=== PATIENT | male | born 1980 | race Caucasian/White ===

== ENCOUNTER 2023-07-04 18:53 | Emergency (ER) | payer BC, SELFPAY ==
[2023-07-04 18:59] VITALS: BP 167/97
[2023-07-04 19:23] LABS: % Basophils 0.4 % (0-2); % Eosinophils 1.6 % (0-6); % Immature Granulocytes 0.3 % (0-0.5); % Lymphocytes 29.2 % (20.5-51.1); % Monocytes 8.8 % (1.7-9.3); % Neutrophils 59.7 % (42.2-75.2); Absolute Eosinophils 0.2 10^3/uL (0-0.7); Absolute Lymphocytes 2.7 10^3/uL (1.2-3.4); Absolute Monocytes 0.8 10^3/uL (0.1-0.6); Absolute Neutrophils 5.4 10^3/uL (1.4-6.5); Hematocrit 49.9 % (39.0-52.0); Hemoglobin 16.9 g/dL (13.0-18.0); Mean Corp Hgb Conc. 33.9 g/dL (33.0-37.0); Mean Corpuscular Hgb 30.3 pg (27.0-31.0); Mean Corpuscular Volume 89.6 fL (80.0-94.0); Mean Platelet Volume 10.2 fL (7.4-10.4); Nucleated Red Blood Cells % 0 % (-); Platelet Count 237 10^3/uL (130-400); Red Blood Cell Count 5.57 10^6/uL (4.70-6.10); Red Cell Dist. Width 12.9 % (11.5-14.5); White Blood Cell Count 9.1 10^3/uL (4.8-10.8)
[2023-07-04 19:24] LABS: Urine Albumin Negative (Neg - Trace); Urine Bilirubin Negative (Negative); Urine Character Clear (Clear); Urine Color Yellow; Urine Glucose Negative (Negative); Urine Ketone Negative (Negative); Urine Leukocyte Trace (Negative); Urine Nitrite Negative (Negative); Urine Occult Blood 3+ (Negative); Urine Urobilinogen Negative (Neg - 1+)
[2023-07-04 19:42] LABS: Urine Squamous Cell 0-2 /LPF (Few)
[2023-07-04 19:43] LABS: ALT (SGPT) 38 U/L (0-50); AST (SGOT) 29 U/L (17-59); Albumin 4.8 g/dl (3.5-5.0); Alkaline Phosphatase 58 U/L (38-126); Blood Urea Nitrogen 22 mg/dl (9-20); Calcium 9.8 mg/dl (8.4-10.2); Carbon Dioxide 35 mmol/L (22-30); Chloride 96 mmol/L (98-107); Glucose 127 mg/dl (70-99); Sodium 137 mmol/L (135-145); Total Bilirubin 0.7 mg/dl (0.2-1.3); Total Protein 7.8 g/dl (6.3-8.2); Urine White Cell 0-2 /HPF (0-5); eGFR > 60.00
--- NOTE | 2023-07-04 23:52 | ED.GENMED ---
History of Present Illness
<ALYSSA Galvin - Last Filed: 07/05/23 00:50>
General
Chief Complaint: Flank Pain
Source: patient and significant other
Exam Limitations: none
Time Seen by Provider: 07/04/23 23:39
Nursing documentation reviewed up to this point in time: agreed with
Travel History
Have you had any contact with someone who has COVID-19?: No
Do you have any symptoms of coronavirus? Fever > 100 degrees, chills, cough, shortness of breath, sore throat, loss of taste or smell, muscle aches, or headache?: No
History of Present Illness
History of Present Illness:
This is a 42 year old male, with a history of kidney stones, presenting to the ED c/o flank pain x 7 hours. Pt goes by they/them pronouns. Pt states they were having increased urinary frequency during the day. Pt states the pain started around 5 pm
on his right side. They took one percocet which did not help and then took a second one 45 min later, which also did not alleviate his pain. Pt states the pain was radiating down to their groin but they feel as though the stone has passed into the
bladder. Pt does not currently have flank pain and moreso complains of intermittent urethral spasms. Pt last saw their charge poster in January or February where they had a CAT scan and was told there were multiple stones in b/l kidneys. No tx was
necessary because none of the stones were obstructing. Pt has had multiple laser treatments and shock waves done in the past and states they have had 'over 100 kidney stones'. Pt denies and fever, chills, n/v, CP, SOB, dizziness, lightheadedness,
dysuria, or hematuria.
Pt denies any tobacco use, drinks 1-2 alcoholic drinks weekly, and uses marijuana 1-2x weekly.
Past History
<ALYSSA Galvin - Last Filed: 07/05/23 00:50>
Past History
ED Past Medical History: Other (>100 kidney stones, hair loss)
ED Past Surgical History: Urological (shock wave lithotripsy)
Patient has exhibited threatening behavior?: No
Social History
Tobacco: Non-smoker
Alcohol: Occasional
Drug: Marijuana
Family History
Family History: Diabetes, CAD and Other (kidney stones on both sides)
Review of Systems
<ALYSSA Galvin - Last Filed: 07/05/23 00:50>
Review of Systems
Allergies reviewed?: Yes
Other source history: family
Constitutional: Reports no symptoms; Denies fever or chills
Respiratory: Reports no symptoms; Denies trouble breathing
Cardiac: Reports no symptoms; Denies chest pain
ABD/GI: Reports abdominal pain (suprapubic); Denies nausea or vomiting
: Reports frequency and flank pain; Denies dysuria or bleeding
Skin: Reports no symptoms
Neurological: Reports no symptoms; Denies dizzy
Phy Exam
<ALYSSA Galvin - Last Filed: 07/05/23 00:50>
General Physical Exam
General Presentation: well appearing and no apparent distress
General age: appears stated age
General Skin: warm and dry
General Habitus: normal
General Mental: alert
General Hydration: appears well hydrated
Cardiovascular Exam
Cardiovascular Exam: regular rate/rhythm, no edema, no gallop, no murmur and normal peripheral pulses
Heart Sounds: normal
Pulmonary Exam
Pulmonary Exam: lungs clear, no respiratory distress, no rales, no crackles, no rhonchi, no wheezing and no cough
Oxygen Status: room air
Cough: no cough
Gastrointestinal Exam
Gastrointestinal Exam: normal bowel sounds, soft, no cva tenderness and tender (left suprapubic)
Auscultation of Abdomen: normal
Genitourinary Exam Male
Exam Male: no CVAT
Neurological Exam
Neurological Exam: alert and oriented x3
Musculoskeletal Exam
Musculoskeletal Exam: no edema
Skin Exam
Skin Exam: normal color and warm/dry
Psychiatric Exam
Psychiatric Exam: normal mood/affect
Course
<ALYSSA Galvin - Last Filed: 07/05/23 00:50>
Orders/Labs/Results
Orders:
Orders
07/04/23 19:06
Complete Blood Count/With Diff Urgent
Comprehensive Metabolic Panel Urgent
Urinalysis Reflex To Culture Urgent
Date Specimen was Collected: 07/04/23
Time Specimen was Collected: 19:00
Urine Microscopic Reflex Cult Urgent
07/05/23 00:06
Abdomen Xray - 1 View [CR Abdomen - 1 View] Urgent
Comment:
Reason For Exam: KUB film, R flank pain, hx kidney stones
Renal & Bladder US [US Renal With Bladder] Urgent
Comment:
Reason For Exam: R flank pain, hx kidney stones
Abnormal Lab Results
07/04/23
19:06
Absolute Monos (auto) 0.8 H 10^3/uL
(0.1-0.6)
Chloride 96 L mmol/L
(98-107)
Carbon Dioxide 35 H mmol/L
(22-30)
BUN 22 H mg/dl
(9-20)
Glucose 127 H mg/dl
(70-99)
Ur Occult Blood Reflex 3+ A
(Negative)
Leukocyte Esterase Rfl Trace A
(Negative)
Urine RBC 7-10 A /HPF
(0-2)
07/04/23 19:06
07/04/23 19:06
Vital Signs
Initial and Last Documented VS:
Initial Vital Signs
Temp Pulse Resp BP Pulse Ox
98.5 F 86 17 167/97 99
07/04/23 18:59 07/04/23 18:59 07/04/23 18:59 07/04/23 18:59 07/04/23 18:59
Last Documented Vital Signs
Temp Pulse Resp BP Pulse Ox
98.5 F 71 17 132/93 97
07/04/23 18:59 07/05/23 00:30 07/04/23 18:59 07/05/23 00:09 07/05/23 00:30
<Ana Laura Garcia, DO - Last Filed: 07/05/23 02:07>
Orders/Labs/Results
Orders:
Orders
07/04/23 19:06
Complete Blood Count/With Diff Urgent
Comprehensive Metabolic Panel Urgent
Urinalysis Reflex To Culture Urgent
Date Specimen was Collected: 07/04/23
Time Specimen was Collected: 19:00
Urine Microscopic Reflex Cult Urgent
07/05/23 00:06
Abdomen Xray - 1 View [CR Abdomen - 1 View] Urgent
Comment:
Reason For Exam: KUB film, R flank pain, hx kidney stones
Renal & Bladder US [US Renal With Bladder] Urgent
Comment:
Reason For Exam: R flank pain, hx kidney stones
Abnormal Lab Results
07/04/23
19:06
Absolute Monos (auto) 0.8 H 10^3/uL
(0.1-0.6)
Chloride 96 L mmol/L
(98-107)
Carbon Dioxide 35 H mmol/L
(22-30)
BUN 22 H mg/dl
(9-20)
Glucose 127 H mg/dl
(70-99)
Ur Occult Blood Reflex 3+ A
(Negative)
Leukocyte Esterase Rfl Trace A
(Negative)
Urine RBC 7-10 A /HPF
(0-2)
07/04/23 19:06
07/04/23 19:06
Vital Signs
Initial and Last Documented VS:
Initial Vital Signs
Temp Pulse Resp BP Pulse Ox
98.5 F 86 17 167/97 99
07/04/23 18:59 07/04/23 18:59 07/04/23 18:59 07/04/23 18:59 07/04/23 18:59
Last Documented Vital Signs
Temp Pulse Resp BP Pulse Ox
98.5 F 71 17 132/93 97
07/04/23 18:59 07/05/23 00:30 07/04/23 18:59 07/05/23 00:09 07/05/23 00:30
<Ana Laura Garcia DO - Last Filed: 07/05/23 02:07>
*Radiology
Radiology exam reviewed: radiology read reviewed (Ultrasound shows bilateral hydronephrosis right greater than left. Nonobstructing stones bilaterally. Ureteral jets are visualized bilaterally.)
*Pulse Oximetry
Patient hypoxic: no
*Critical Care Note
Total Time (30-74mins, 75-104mins- exclusive of procedures): Not Applicable
ED Attending Note
<ALYSSA Galvin - Last Filed: 07/05/23 00:50>
-
Portions of this chart may have been created with voice recognition software.� Occasional wrong word or��sound alike� substitutions may have occurred due to the inherent limitations of voice recognition software.
<Ana Laura Garcia DO - Last Filed: 07/05/23 02:07>
ED Attending Note
Patient seen and examined by attending physician: Yes
I performed the substantive portion of visit, reviewed & personally made and approve the management plan that is documented in note by myself or PONCHO.: Yes
I performed a history and physical exam of patient and discussed management with resident, I reviewed resident's note and agree with documented findings and plan of care.: Yes
ED Attending Note:
This is a 42-year-old (prefers they/them) who has longstanding history of kidney stones follows with nephrology as well as urology to [facility]. They required lithotripsy as well as ureteroscopy in the past but last surgical procedure a
couple of years ago. Their last episode of ureteric colic was a number of months ago. They complain of abrupt onset of right flank pain radiating to right lower quadrant
That began this evening around 5 PM. Pain feels similar to previous episodes of renal colic. They did take 2 Percocet this evening without relief but since arriving to the ED pain has resolved and they believe the stone has passed into the
bladder. They do note mild dysuria but no ramona hematuria, no urgency nor frequency. They have not had a fever nor chills. No nausea nor vomiting.
GENERAL: Alert , in no apparent distress
EYE: anicteric
NECK: Supple, nontender, no meningismus, no significant adenopathy.
ENT: oral mucosa is moist. No rhinorrhea.
CARDIAC: Regular rate and rhythm. no murmur.
LUNGS: Clear breath sounds bilaterally, no acute respiratory distress, no wheezes/rales/rhonchi
ABDOMEN: Soft, nondistended, without focal tenderness, no r/g, no cvat. normoactive BS.
NEUROLOGICAL: Alert and oriented x3, no focal neuro deficits. Gait is ugalde and steady.
SKIN: Warm and dry, normal color, skin intact. No rash.
MUSCULOSKELETAL: No C/C/E. peripheral pulses are full and equal b/l. No palpable tenderness.
PSYCH: Normal and appropriate interaction.
History concerning for right ureteric stone. Perhaps recently passed into bladder versus current quiescence of ureter versus residual nonobstructing ureteral stone.
Labs are reassuring.
Urinalysis is positive for small amount of microscopic blood but no evidence of infection.
Will check renal ultrasound with bladder assess for obstructive uropathy on the right and will check KUB as well.
Will observe for return of pain.
07/05/2023 0205 AM
Patient remains pain-free and comfortable and shortly after returning from ultrasound they have voided a lobulated approximately 6 mm stone.
This voided stone appears consistent with stone visualized right proximal bladder on KUB film.
Will discharge to home with recommendations they continue current medications as prescribed by charge poster including hydrochlorothiazide, potassium supplement, magnesium supplement.
Stay well-hydrated on a daily basis.
Follow-up with charge poster and urologist as needed.
Discharge Plan
Departure
Patient Disposition: Home (Routine Discharge)
Date of Disposition: 07/05/23
Time of Disposition: 02:03
Patient with high blood pressure during this ER visit?: No
Condition: Good
Discharge Problem:
acute renal colic on the right, successful passage of ureteric stone
Instructions: Kidney Stones (DC)
Referrals:
New Finn DO [Family Provider] - Call in 1-3 days for appt
Activity Restrictions/Additional Instructions:
Continue to stay well-hydrated on a daily basis.
Continue current medications as prescribed by your charge poster.
Follow-up with your charge poster as well as urologist as needed.
Interventions
Interventions:
*Risk Screen - Suicide Last Done: 07/04/23 18:59
*General Assessment Last Done: 07/04/23 18:59
*Neglect/Abuse Screening Last Done: 07/04/23 18:59
*ED COVID-19 Vaccine History Last Done: 07/04/23 18:59
ED-Male Genitourinary Assessment Last Done: 07/04/23 23:56
[2023-07-05 00:09] VITALS: BP 132/93
[2023-07-05 02:06] VITALS: BP 125/86
== END 2023-07-05 02:10 | disposition home or self-care (01) ==
LOC: EMR 18:53
PROVIDERS: Emergency Medicine; EMERGENCY PHYSICIAN Emergency Medicine; FAMILY PHYSICIAN Family Medicine
DX: N20.2 Calculus of kidney with calculus of ureter (principal); Z87.442 Personal history of urinary calculi
CPT/HCPCS: 99285; 74018; 76770; 80053; 81003; 81015; 85025

== ENCOUNTER → 2024-07-31 13:04 | Outpatient (REF) | payer BC, SELFPAY | LOC: HWRAD 13:04 | PROVIDERS: ATTENDING PHYSICIAN Surgery; FAMILY PHYSICIAN Family Medicine | DX: N20.0 Calculus of kidney (principal) | CPT/HCPCS: 74176 ==

== ENCOUNTER 2024-09-30 06:12 | Day surgery (SDC) | payer BC, SELFPAY ==
[2024-09-30] VITALS (11 sets, daily range): BP systolic 111–130; BP diastolic 74–88; BMI 28.4
[2024-09-30] MEDS: TYLENOL 1000 MG PO (09:43)
[2024-09-30] MEDS: NORMOSOL-R/PLASMALYTE-A 1000 IV ×2 (09:44→11:54)
--- NOTE | 2024-09-30 09:56 | W.SUR.PREOP ---
Pre-Operative Surgical Note
-
I have examined this patient prior to the performance of the scheduled procedure.
The patient's condition is unchanged from the time of the current History and
Physical and the patient is able to undergo the scheduled procedure.
--- NOTE | 2024-09-30 09:56 | HP.FOC2 ---
Focused History & Physical
Chief Complaint
HPI:
Chief Complaint: Epigastric hernia
HPI / Indication for Planned Procedure: This is a 43-year-old male with a symptomatic epigastric hernia. Will plan for robotic epigastric hernia repair with mesh.
Relevant Past Medical History: Negative
Relevant Social History: Negative
Relevant Family History: Negative
Relevant Past Surgical History: Negative
Review of Systems
Review of Pertinent Systems: All Systems Negative
Medication
See Medication form for detailed medications: Yes
Medication List (including Herbals & OTC):
albuterol sulfate 90 mcg/actuation aerosol inhaler 1 inh inhalation ONCE PRN wheeze 09/25/24
allopurinol 100 mg tablet 100 mg PO DAILY 09/25/24
desvenlafaxine succinate 25 mg tablet,extended release 24 hr (Pristiq) 25 mg PO DAILY 09/25/24
finasteride 1 mg tablet 1 mg PO DAILY 09/25/24
hydrochlorothiazide 25 mg tablet 25 mg PO BID 09/25/24
magnesium glycinate 400 mg PO DAILY 09/25/24
potassium chloride 20 mEq tablet,extended release(part/cryst) 40 meq PO BID 09/25/24
spironolactone 25 mg tablet 25 mg PO DAILY 09/25/24
Medications Reviewed: Yes
Allergies and Reactions
Patient has Allergies: No
Noted Allergies and Reactions:
Allergy/AdvReac Type Severity Reaction Status Date / Time
No Known Allergies Allergy Unverified 09/30/24 09:31
Pertinent Physical Exam
All Other Systems: Negative
Head/Neck: Normal
Diagnosis / Assessment
This is a 43-year-old male with a symptomatic epigastric hernia.
Plan / Procedure
Will plan for robotic epigastric hernia repair with mesh.
Anesthesia/Sedation to be done by Anesthesia Provider: Yes
--- NOTE | 2024-09-30 11:17 | W.IMMPOSTOP ---
Surgical Immed Post Op Note
-
Primary Surgeon: Rojas Peng MD
Assisting Surgeon: None
Pre-op Diagnosis: Epigastric
Post-op Diagnosis: Same
Procedure Performed: Robotic ventral (epigastric) hernia repair with mesh (MICHAEL approach)
Anesthesia Type: General
Specimen / Cultures: None
Estimated Blood Loss: 3 cc
Complications: None
Operative Findings: 1.5 cm defect containing preperitoneal/falciform fat. Closed transversely with a 0 V-Loc 180 suture and then reinforced in the preperitoneal space with a 10 cm round Bard soft uncoated polypropylene mesh. Mesh completely
excluded from the abdominal viscera.
--- NOTE | 2024-09-30 11:19 | OR.RPT ---
Operative Report
Operative Report
Patient Name: Brody Niño
: 1980
Date of Operation: 09/30/2024
Preoperative Diagnosis: Ventral (epigastric) hernia
Postoperative Diagnosis: Same
Procedure(s):
Robotic ventral (epigastric) hernia repair with mesh (MICHAEL approach)
Surgeon(s):
Dr. Peng
Pie Crimping Machine Operator(s):
CHELSEY Torres
Anesthesia: General
Estimated Blood Loss: 3 cc
Urine Output: None
Drains/Lines/Implants:
10 cm round Bard soft mesh
Specimens:
None
HPI/Surgical Indications:
This is a 43-year-old male who was seen in my office for a symptomatic umbilical bulge and diagnosed with a reducible epigastric hernia. Risks/Benefits/Alternatives were discussed at length, and the patient agreed to proceed with surgery.
Operative Findings: 1.5 cm defect containing preperitoneal/falciform fat. Closed transversely with a 0 V-Loc 180 suture and then reinforced in the preperitoneal space with a 10 cm round Bard soft uncoated polypropylene mesh. Mesh completely
excluded from the abdominal viscera.
Procedure Description:
The patient was brought to the Operating Room and placed in the supine position with the arms tucked. IV antibiotics were infused and Venodyne stockings placed. Following uneventful induction of general endotracheal anesthesia, an orogastric tube
was placed. The abdomen was prepped and draped in the usual sterile fashion. The abdomen was entered using a Veress technique which required 1 pass, pneumoperitoneum to 15 mmHg was obtained without difficulty. An 8mm trochar was passed through the
abdominal wall roughly 20 cm inferiorly from the defect in the left lower quadrant, just off the midline. We then confirmed that no inadvertent injury was made while passing the trocar or Veress needle. We then placed two additional 8 mm ports in
the left and right lower quadrants. Bilateral tap blocks were performed. The robot was docked. We then introduced our prograsper through the inferior/left hand port and a monopolar scissors through the superior port. We then turned our attention
to the hernia which had no intra-abdominal contents. We then began taking a flap down roughly 6 cm away from the defect and roughly 12 cm in length taking care to stay in the pretransversalis plane. The preperitoneal/falciform fat was taken down
off of the posterior rectus sheath both superior and inferior to the hernia defect such that we were able to get our 'volcano sign'. We then worked on reducing the defect which contained preperitoneal fat and continued our dissection out laterally
for an additional 6 cm. Once our flap was created we introduced a ruler and a 0 V-Loc 180. The main hernia defect measured 1.5 cm. The pocket measured 12 x 12 cm. I had my fish hatchery assistant cut a 10 cm round piece of Bard soft mesh marked with 0 Vicryl
suture at the center, as I closed the hernia defect. The mesh was then sutured to the posterior rectus sheath in 4 quadrants with 2-0 vircyls to ensure good apposition. A 2-0 Monocryl was introduced which was used to close our flap. All sutures
were removed. The robot was undocked. The ports were removed under direct visualization and pneumoperitoneum was evacuated. The port sites were closed with 4-0 Monocryl followed by Dermabond. Counts were correct and overall, the patient tolerated
the procedure well and was taken to the Recovery Room postoperatively in stable condition.
I was the attending physician and performed the procedure with assistance from the TRACK LABORER above. I was present for all portions of the case except for skin closure.
Rojas Peng MD
[2024-09-30] MEDS: DILAUDID 0.5 MG IV ×2 (11:37→11:51)
[2024-09-30] MEDS: MORPHINE SULFATE 4 MG IV (12:30)
[2024-09-30] MEDS: ROXICODONE 5 MG PO (13:21)
== END 2024-09-30 13:40 | disposition home or self-care (01) ==
LOC: SDS 06:12
PROVIDERS: ATTENDING PHYSICIAN Surgery; FAMILY PHYSICIAN Family Medicine
DX: K43.9 Ventral hernia without obstruction or gangrene (principal)
CPT/HCPCS: 49591; C1781

== ENCOUNTER 2025-03-09 00:30 | Inpatient (IN) | payer BC, SELFPAY ==
[2025-03-08 19:58] VITALS: BP 140/91
[2025-03-08 20:13] LABS: Hematocrit 49.2 % (39.0-52.0); Hemoglobin 15.9 g/dL (13.0-18.0); Mean Corp Hgb Conc. 32.3 g/dL (33.0-37.0); Mean Corpuscular Volume 90.3 fL (80.0-94.0); Nucleated Red Blood Cells % 0 % (-); Platelet Count 252 10^3/uL (130-400); Red Cell Dist. Width 13.0 % (11.5-14.5)
[2025-03-08 20:34] LABS: ALT (SGPT) 61 U/L (0-50); AST (SGOT) 35 U/L (17-59); Albumin 4.9 g/dl (3.5-5.0); Alkaline Phosphatase 48 U/L (38-126); Blood Urea Nitrogen 19 mg/dl (9-20); Calcium 10.1 mg/dl (8.4-10.2); Carbon Dioxide 32 mmol/L (22-30); Chloride 101 mmol/L (98-107); Glucose 125 mg/dl (70-99); Potassium 3.9 mmol/L (3.5-5.1); Sodium 139 mmol/L (135-145); Total Protein 8.3 g/dl (6.3-8.2); eGFR > 60.00
--- NOTE | 2025-03-08 21:42 | ED.GENMED ---
History of Present Illness
General
Chief Complaint: Abdominal Pain
Time Seen by Provider: 03/08/25 21:34
Nursing documentation reviewed up to this point in time: agreed with
History of Present Illness
History of Present Illness:
44-year-old male presents to the ER for evaluation of left lower quadrant abdominal pain which started abruptly at 5:00 today. He reports a palpable painful lump which she states he is able to push in and make go away, however this is not
necessarily alleviating his pain. He reports over the past few days he has been having some lower abdominal discomfort. No nausea vomiting or change in bowel habits. He does report that he has been having some discomforts reminiscent of a kidney
stone, he has frequently experienced kidney stones in the past.
Past History
Past History
ED Past Medical History: Other (>100 kidney stones, hair loss)
ED Past Surgical History: Urological (shock wave lithotripsy)
Patient has exhibited threatening behavior?: No
Social History
Tobacco: Non-smoker
Alcohol: Occasional
Drug: Marijuana
Family History
Family History: Diabetes, CAD and Other (kidney stones on both sides)
Review of Systems
Review of Systems
Allergies reviewed?: Yes
Phy Exam
Physical Exam
Physical Exam:
Patient is awake, alert, appears in no acute distress, head is NCAT, PERRL, wearing glasses, EOMI mucous membranes moist, conjunctiva pink, heart regular rate and rhythm without murmurs or ectopy, lungs are clear to auscultation without wheezes
rales or rhonchi, no JVD, abdomen is soft with multiple small well-healed surgical incisions consistent with prior ventral hernia repair, patient localizes the in the left lower quadrant without a palpable hernia, mild diffuse suprapubic pain on
palpation, no guarding or rebound, extremities without edema, GCS is 15
Course
Orders/Labs/Results
Orders:
Orders
03/08/25 20:06
CMP [Comprehensive Metabolic Panel] Urgent
Complete Blood Count/With Diff Urgent
03/08/25 21:40
CT Abd/Pel (IV only)-DH only Urgent
Comment:
Reason For Exam: LLQ pain
IV Insert/Care/Rem.- Treatment PRN
Urinalysis Reflex To Culture Urgent
0.9% Sodium Chloride 1000 ml [Nss] 1,000 ml IV BOLUS
Ketorolac [Toradol] 15 mg IV NOW STA
Abnormal Lab Results
03/08/25
20:06
MCHC 32.3 L g/dL
(33.0-37.0)
MPV 10.7 H fL
(7.4-10.4)
Absolute Neuts (auto) 7.2 H 10^3/uL
(1.4-6.5)
Absolute Monos (auto) 0.8 H 10^3/uL
(0.1-0.6)
Carbon Dioxide 32 H mmol/L
(22-30)
Glucose 125 H mg/dl
(70-99)
ALT 61 H U/L
(0-50)
Total Protein 8.3 H g/dl
(6.3-8.2)
03/08/25 20:06
03/08/25 20:06
CBC reassuring. Electrolytes within normal limits
Vital Signs
Initial and Last Documented VS:
Initial Vital Signs
Temp Pulse Resp BP Pulse Ox
98.4 F 86 16 140/91 98
03/08/25 19:58 03/08/25 19:58 03/08/25 19:58 03/08/25 19:58 03/08/25 19:58
Last Documented Vital Signs
Temp Pulse Resp BP Pulse Ox
98.4 F 86 16 140/91 98
03/08/25 19:58 03/08/25 19:58 03/08/25 19:58 03/08/25 19:58 03/08/25 21:46
MDM/Problems Addressed
Differential Diagnosis Includes:
Differential diagnosis to consider but not limited to diverticulitis, colitis, incarcerated hernia, renal colic along with other etiologies considered
Chronic conditions affecting care:
Renal colic, GERD
*Pulse Oximetry
SaO2: 98
Oxygen Mode of Delivery: Room air
Patient hypoxic: no
*Critical Care Note
Total Time (30-74mins, 75-104mins- exclusive of procedures): Not Applicable
Update Note
Update Note:
1945: Will give Toradol and IV fluids and obtain CT scan to assess for incarcerated hernia versus diverticulitis versus alternative etiology. Patient and significant other present at bedside agree with plan at current
2300: Full pt care transferred to Dr Ruffin at end of shift pending CT for disposition
ED Attending Note
-
Portions of this chart may have been created with voice recognition software.� Occasional wrong word or��sound alike� substitutions may have occurred due to the inherent limitations of voice recognition software.
Discharge Plan
Departure
Prescriptions:
No Action
allopurinol 100 mg Tablet
100 mg PO DAILY
spironolactone 25 mg Tablet
25 mg PO DAILY
potassium chloride 20 mEq tablet,ER particles/crystals
40 meq PO BID
hydrochlorothiazide 25 mg tablet
25 mg PO BID
albuterol sulfate 90 mcg/actuation Hfa Aerosol Inhaler
1 inh INHALATION ONCE PRN (Reason: wheeze)
finasteride 1 mg Tablet
1 mg PO DAILY
desvenlafaxine succinate [Pristiq] 25 mg Tablet Extended Release 24 Hr
25 mg PO DAILY
magnesium glycinate 100 mg magnesium Capsule
400 mg PO DAILY
acetaminophen [acetaminophen] 325 mg tablet
650 mg PO Q6HPRN PRN (Reason: mild pain) Qty: 14 0RF
tramadol 50 mg tablet
25 mg PO Q6HPRN PRN (Reason: severe pain/breakthrough pain) Qty: 2 0RF
ibuprofen 600 mg tablet
600 mg PO Q6H PRN (Reason: pain) Qty: 14 0RF
Referrals:
UNKNOWN - PT DOES,NOT KNOW [Family Provider]
Interventions
Interventions:
*Risk Screen - Suicide Last Done: 03/08/25 19:58
*General Assessment Last Done: 03/08/25 19:58
*Neglect/Abuse Screening Last Done: 03/08/25 19:58
*ED- Fall Risk Assessment Last Done: 03/08/25 19:58
*ED COVID-19 Vaccine History Last Done: 03/08/25 19:58
*ED Influenza Vaccine History Last Done: 03/08/25 19:58
Discharge Date and Time
Print Language: AZERI
[2025-03-08] MEDS: NSS 1000 IV (22:01)
[2025-03-08] MEDS: TORADOL 15 MG IV (22:02)
[2025-03-09] VITALS (15 sets, daily range): BP systolic 117–144; BP diastolic 74–104; BMI 29.6
[2025-03-09 00:03] LABS: Urine Character Clear (Clear)
--- NOTE | 2025-03-09 00:11 | ED.GENMED ---
History of Present Illness
General
Chief Complaint: Abdominal Pain
Time Seen by Provider: 03/08/25 21:34
Past History
Past History
ED Past Medical History: Other (>100 kidney stones, hair loss)
ED Past Surgical History: Urological (shock wave lithotripsy)
Patient has exhibited threatening behavior?: No
Social History
Tobacco: Non-smoker
Alcohol: Occasional
Drug: Marijuana
Family History
Family History: Diabetes, CAD and Other (kidney stones on both sides)
Course
Orders/Labs/Results
Orders:
Orders
03/08/25 20:06
CMP [Comprehensive Metabolic Panel] Urgent
Complete Blood Count/With Diff Urgent
03/08/25 21:40
CT Abd/Pel (IV only)-DH only Urgent
Comment:
Reason For Exam: LLQ pain
IV Insert/Care/Rem.- Treatment PRN
0.9% Sodium Chloride 1000 ml [Nss] 1,000 ml IV BOLUS
Ketorolac [Toradol] 15 mg IV NOW STA
03/08/25 23:57
Urinalysis Reflex To Culture Urgent
Date Specimen was Collected: 03/08/25
Time Specimen was Collected: 23:55
Abnormal Lab Results
03/08/25
20:06
MCHC 32.3 L g/dL
(33.0-37.0)
MPV 10.7 H fL
(7.4-10.4)
Absolute Neuts (auto) 7.2 H 10^3/uL
(1.4-6.5)
Absolute Monos (auto) 0.8 H 10^3/uL
(0.1-0.6)
Carbon Dioxide 32 H mmol/L
(22-30)
Glucose 125 H mg/dl
(70-99)
ALT 61 H U/L
(0-50)
Total Protein 8.3 H g/dl
(6.3-8.2)
03/08/25 20:06
03/08/25 20:06
Vital Signs
Initial and Last Documented VS:
Initial Vital Signs
Temp Pulse Resp BP Pulse Ox
98.4 F 86 16 140/91 98
03/08/25 19:58 03/08/25 19:58 03/08/25 19:58 03/08/25 19:58 03/08/25 19:58
Last Documented Vital Signs
Temp Pulse Resp BP Pulse Ox
98.4 F 86 16 140/91 98
03/08/25 19:58 03/08/25 19:58 03/08/25 19:58 03/08/25 19:58 03/08/25 21:46
*Pulse Oximetry
SaO2: 98
Oxygen Mode of Delivery: Room air
Update Note
Update Note:
NAME: MERLIN CUTLER
DATE OF EXAM: 03/08/2025
Patient No: [id number]
Physician: UZAIR
Date of : 1980
Past Medical History (entered by Technologist):
Reason For Exam (entered by Technologist):
Other Notes (entered by Technologist): Pt complains of left lower quad pain and lump. Pt states 'i can pop it back in and it feels better'
Prior sent
Additional Information (per [facility] Radiologist):
CT AP with contrast
Comparison: 07/31/2024 but
IMPRESSION:
Two 6 mm obstructive stones in the proximal and distal left ureter with moderate left hydroureteronephrosis. Nonobstructive bilateral calyceal calcifications. Urinary bladder wall thickening may be related to underdistension, consider correlation
for cystitis.
Small midline ventral hernia containing fat which now demonstrates increased density, correlate for pain in this region, could represent fat necrosis.
No calcified gallstones.
No bowel obstruction or bowel wall thickening.
No free fluid nor free air.
Case finalized on 03/08/25 23:45 EDT
Joanne Kaba M.D.
This report has been electronically signed and verified by the Radiologist whose name is printed above.
Discussed CT scan findings with patient. Patient is well-appearing, and in minimal distress. He is afebrile and has no complaints at this time. I did discuss CT scan findings with Dr. Singh, urology. He recommends patient be admitted to the
hospitalist service and n.p.o. for possible procedure tomorrow. Patient aware and is in agreement with this plan. Hospitalist aware and agrees to admit patient to his service.
ED Attending Note
-
Portions of this chart may have been created with voice recognition software.� Occasional wrong word or��sound alike� substitutions may have occurred due to the inherent limitations of voice recognition software.
Discharge Plan
Departure
Patient Disposition: Admit
Date of Disposition: 03/09/25
Time of Disposition: 00:12
Presentation/result/management discussed w/ accepting MD/DO: Hospitalist
Condition: Good
Discharge Problem:
Kidney stone on left side, Kidney stones
Prescriptions:
No Action
allopurinol 100 mg Tablet
100 mg PO DAILY
spironolactone 25 mg Tablet
25 mg PO DAILY
potassium chloride 20 mEq tablet,ER particles/crystals
40 meq PO BID
hydrochlorothiazide 25 mg tablet
25 mg PO BID
albuterol sulfate 90 mcg/actuation Hfa Aerosol Inhaler
1 inh INHALATION ONCE PRN (Reason: wheeze)
finasteride 1 mg Tablet
1 mg PO DAILY
desvenlafaxine succinate [Pristiq] 25 mg Tablet Extended Release 24 Hr
25 mg PO DAILY
magnesium glycinate 100 mg magnesium Capsule
400 mg PO DAILY
acetaminophen [acetaminophen] 325 mg tablet
650 mg PO Q6HPRN PRN (Reason: mild pain) Qty: 14 0RF
tramadol 50 mg tablet
25 mg PO Q6HPRN PRN (Reason: severe pain/breakthrough pain) Qty: 2 0RF
ibuprofen 600 mg tablet
600 mg PO Q6H PRN (Reason: pain) Qty: 14 0RF
Referrals:
UNKNOWN - PT DOES,NOT KNOW [Family Provider]
Interventions
Interventions:
*Risk Screen - Suicide Last Done: 03/08/25 19:58
*General Assessment Last Done: 03/08/25 19:58
*Neglect/Abuse Screening Last Done: 03/08/25 19:58
*ED- Fall Risk Assessment Last Done: 03/08/25 19:58
*ED COVID-19 Vaccine History Last Done: 03/08/25 19:58
*ED Influenza Vaccine History Last Done: 03/08/25 19:58
Discharge Date and Time
Print Language: BURUNDIAN
--- NOTE | 2025-03-09 00:12 | HPS.HSE ---
Family Physician
-
Family Physician: NOT KNOW UNKNOWN - PT DOES
Chief Complaint
-
Abdominal pain
History of Present Illness
This is a 44-year-old male with past medical history significant for nephrolithiasis status post multiple lithotripsies, gout, who presents to the emergency department with abdominal pain.
Patient reported that over the last few days he feels like he has been passing stones. He reports intermittent flank pain on the left. He reports that he has known residual stones in the left kidney. He reports no hematuria frequency urgency or
dysuria. He states that today he had a more sharp left lower quadrant abdominal pain that was associated with some bulge in the left lower quadrant. He was concerned that it was a hernia and he came to the emergency department for evaluation.
There was no associated nausea or vomiting. He has not been having any constipation. He denies any medication changes.
In the emergency department blood pressure was 140/91 with a pulse rate of 86 and he was satting 90% on room air.
White count was 10.7 hemoglobin and platelets were normal. Electrolytes BUN and creatinine were normal. Glucose was normal. UA was completely unremarkable.
CT of the abdomen pelvis showed 216 mm obstructive stones in the proximal and distal ureter with moderate left hydroureteronephrosis.
Medical History
Past Medical History
Past Medical History: Reports Other (Nephrolithiasis)
Past Surgical History: Reports Urological (Multiple lithotripsy, ventral hernia repair with mesh September 2024)
Social History
Tobacco: Vaping
Alcohol: Occasional
Drug: None
Personal:
Living: With Family
Family History
Family History: Not pertinent
Allergies / Home Medications
Allergies reflects when Allergies were last updated in [facility].
Home Medications with original date entered in [facility]
Allergy/Medication List:
Allergies
Allergy/AdvReac Type Severity Reaction Status Date / Time
No Known Allergies Allergy Verified 03/08/25 20:00
Home Medications
allopurinol 100 mg tablet 100 mg PO DAILY 09/25/24
desvenlafaxine succinate 25 mg tablet,extended release 24 hr (Pristiq) 25 mg PO DAILY 09/25/24
finasteride 1 mg tablet 1 mg PO DAILY 09/25/24
hydrochlorothiazide 25 mg tablet 25 mg PO BID 09/25/24
magnesium glycinate 400 mg PO DAILY 09/25/24
potassium chloride 20 mEq tablet,extended release(part/cryst) 40 meq PO BID 09/25/24
spironolactone 25 mg tablet 25 mg PO DAILY 09/25/24
Review of Systems
-
Constitutional: Reports No Symptoms
EENT: Reports No Symptoms
Respiratory: Reports No Symptoms
Cardiac: Reports No Symptoms
Abdomen/GI: Reports Abdominal Pain
: Reports No Symptoms
Musculoskeletal: Reports No Symptoms
Skin: Reports No Symptoms
Neurological: Reports No Symptoms
Endocrine: Reports No Symptoms
Hematologic/Lymphatic: Reports No Symptoms
Psych: Reports No Symptoms
Physical Exam
Vital Signs
Vital Signs
Temp Pulse Resp BP Pulse Ox
98.4 F 86 16 140/91 98
03/08/25 19:58 03/08/25 19:58 03/08/25 19:58 03/08/25 19:58 03/09/25 00:12
Physical Exam
General: Well Developed, Well Nourished and No Apparent Distress
HEENT: NormoCephalic, Moist mucous membranes and Atraumatic
Respiratory: Clear
Cardiac: S1/S2 and Regular Rhythm; No Murmur or Rub
GI: Soft, Non Tender, Non Distended, Normal Bowel Sounds and Other (Obese abdomen, cannot palpate any defect in the fascia consistent with hernia. Did not notice any bulge.); No Organomegaly
Rectal: Deferred by Provider
Musculoskeletal: No Clubbing, No Cyanosis and No Edema
Skin: No Rash
Neuro: AO x 3 and Nonfocal/grossly intact
Laboratory Results
-
03/08/25 20:06
03/08/25 20:06
Laboratory Results
Total Bilirubin 0.6 mg/dl (0.2-1.3) 03/08/25 20:06
AST 35 U/L (17-59) 03/08/25 20:06
ALT 61 U/L (0-50) H 03/08/25 20:06
Alkaline Phosphatase 48 U/L (38-126) 03/08/25 20:06
Data Reviewed
-
CT Scan: Report Reviewed by me
Lab Data: Labs Reviewed by me
Old Records: Reviewed
Impression/Plan
-
IMPRESSION:
44-year-old with past medical history significant for nephrolithiasis presented emergency department with abdominal pain and found to have left ureter obstructing stones 6 mm in size with left-sided hydroureteronephrosis. The UA is completely
clear. Patient has a WBC of 10.7 but otherwise shows no signs of systemic infection whatsoever. He is nontoxic-appearing.
PLAN:
Ureterolithiasis -here with left-sided obstructing ureteral stones with hydronephrosis. Renal function is preserved. No signs of acute infection.
-Admit to MedSurg
- N.p.o.
- IV fluids for now
- Pain control and antiemetics
- Continue patient's antihypertensive
- Urology aware and will be taking patient to or a.m.
Kidney stones
- Continue hydrochlorothiazide twice daily
- Spironolactone daily
- Continue KCl at home
Abdominal pain -possible hernia, not kidney related. CT scan does not show any findings consistent with hernia incarceration or strangulation.
- Patient will follow-up with outpatient surgeon
DVT PPX - SCDs
Code status - Full Code
[2025-03-09] MEDS: LR 1000 IV (02:36)
[2025-03-09] MEDS: TORADOL 15 MG IV ×2 (02:37→18:36)
[2025-03-09] MEDS: TYLENOL 650 MG PO (02:37)
[2025-03-09] MEDS: MELATONIN 5 MG PO (02:37)
--- NOTE | 2025-03-09 04:59 | TRANSFER ---
Late note due to pt care:
Pt transferred to Floor from Ed via stretcher. Pt ambulated to the bed ad ramo. IV in place. Pt oriented to the room, use of the call borja, and location of the bathroom. Pt in the lowest position with belongings and call borja within reach. IV in
place and patent with fluid running. All needs met at this time.
[2025-03-09 07:16] LABS: Blood Urea Nitrogen 18 mg/dl (9-20); Calcium 8.9 mg/dl (8.4-10.2); Carbon Dioxide 27 mmol/L (22-30); Chloride 107 mmol/L (98-107); Estimated Creatinine Clearance > 125 ml/min; Glucose 88 mg/dl (70-99); Magnesium 1.8 mg/dl (1.6-2.3); Potassium 3.8 mmol/L (3.5-5.1); Sodium 139 mmol/L (135-145); eGFR > 60.00
[2025-03-09 07:56] LABS: Hematocrit 41.9 % (39.0-52.0); Hemoglobin 14.4 g/dL (13.0-18.0); Mean Corp Hgb Conc. 34.4 g/dL (33.0-37.0); Mean Corpuscular Volume 88.8 fL (80.0-94.0); Platelet Count 200 10^3/uL (130-400); Red Cell Dist. Width 12.8 % (11.5-14.5)
[2025-03-09] MEDS: ZYLOPRIM 100 MG PO (08:56)
[2025-03-09] MEDS: ORETIC 25 MG PO ×2 (08:56→19:44)
[2025-03-09] MEDS: ALDACTONE 25 MG PO (08:56)
--- NOTE | 2025-03-09 09:09 | W.PN.HOSP.TC ---
Today's Communication/Plan
-
General surgery consult
Assessment / Plan
Assessment / Plan
Gen-AAOx3, NAD
HEENT-NC, AT, anicteric, clear oral mm
Neck-supple
CV-reg, no M, +S1/S2
Lungs-clear B/L
Abd-soft, NT, ND
Ext-no edema
Musculoskeletal-no cyanosis, clubbing
Skin-warm and dry
Neuro-grossly non-focal
Psych-calm, cooperative
Left-sided obstructive uropathy -CT scan notes 6 mm calculus in the left proximal ureter, 6 mm calculus in the mid ureter. Moderate left hydroureteronephrosis. 2 nonobstructing left intrarenal calculi. On the right there are 3 small and
nonobstructing intrarenal calculi.
Currently n.p.o., getting IV fluids and analgesics. Discussed with Dr. Singh, patient contemplating conservative management versus operative intervention. He is on the schedule for cystoscopy today at 3 PM.
Left inguinal hernia -consult general surgery, Dr. Estrada.
History of gout
Obesity due to excess calories
Full code
Anticipated Discharge: Within 24 hours
Subjective/Interval History
-
Date of Service: March 09, 2025
Patient seen and examined. Complaining of left groin pain from hernia.
Objective Data
-
Labs:
Laboratory Results
03/09/25
06:35
WBC 6.5
Hgb 14.4
Hct 41.9
Plt Count 200 D
Sodium 139
Potassium 3.8
Chloride 107
Carbon Dioxide 27
BUN 18
Creatinine 0.8
Glucose 88
Calcium 8.9
Vital Signs:
Vital Signs
Temp Pulse Resp BP Pulse Ox
98.1 F 65 16 117/74 98
03/09/25 06:55 03/09/25 06:55 03/09/25 06:55 03/09/25 06:55 03/09/25 06:55
Review of Systems
-
History Source: Patient
All other systems: Reviewed and negative
--- NOTE | 2025-03-09 11:29 | W.PN.URO.CBU ---
Today's Communication / Plan
-
for op room
Assessment / Plan
-
2 stones for left u/l/s today npo
Diagnosis
-
Date of Service: March 09, 2025
-
Patient Diagnosis:
6mm on=bstructing stones diatl and prox left uretr
Post Op Day:
Subjective
-
hematuria
Objective
-
Vital Signs
Temp Pulse Resp BP Pulse Ox
98.1 F 65 16 117/74 98
03/09/25 06:55 03/09/25 06:55 03/09/25 06:55 03/09/25 06:55 03/09/25 09:00
Intake and Output
03/08/25 03/09/25 03/10/25
06:59 06:59 06:59
Output Total 300 / 300
Balance -300 / -300
Output:
Urine, Voided 300 / 300
Laboratory Results
03/09/25 06:35
03/09/25 06:35
Review of Systems
-
: Flank Pain and Bleeding
Physical Exam
-
General - well developed, well nourished, no acute distress
Chest - clear bilaterally
Abdomen - soft, non-tender, positive bowel sounds, no CVAT, no incisional pain or distention
Genitalia - normal
Rectal - normal
Skin - warm & dry with no rash
Neuro - AOx3, no motor deficits
Extremities - no clubbing, no cyanosis, no edema
Incision - clean, dry
Dressing - clean, dry, intact
Counseling
-
for op room
Care Review
Data Reviewed
Discussed with: Hospitalist and Nursing
CT Scan: Image Pers Reviewed
[2025-03-09] MEDS: NON-FORMULARY ITEM 25 MG PO (11:32)
--- NOTE | 2025-03-09 11:42 | CON.GS ---
Addendum entered and electronically signed by Rojas Peng MD 03/09/25 15:40:
I saw and examined the patient independently.
The Ski Tow Operator's note was reviewed and I agree with the note, assessment and plan except where noted below.
Comment: This is a 44-year-old male known to me for a prior epigastric hernia which I fixed robotically who comes in with left lower quadrant pain and bulge which 'reduced' of unclear etiology. CT scan imaging which I reviewed demonstrates
nephrolithiasis as well as a fat-containing small left inguinal hernia. On exam however his pain is more in the left lower quadrant. There is no palpable abnormalities. There is no pain in the groin. While the left lower quadrant area pain would
be a typical site for a spigelian there is no evidence of this on the CT scan.
No acute general surgical intervention warranted at this time.
Care per primary and urology.
Happy to see as an outpatient for workup of his left lower quadrant pain.
I spent 60 minutes in total for the care of this patient today including direct patient care and counseling, reviewing labs, imaging, coordination of care, as well as documentation.
Original Note:
Consultation
-
Date/Time Consultation Performed: 03/09/25 0930
Medical History
-
Chief Complaint: lump to LLQ
History of Present Illness:
Mr Niño is a 44 yo male with a h/o nephrolithiasis with prior lithotripsy and RAL epigastric hernia repair with mesh in September of this year who presented with LLQ pain and is being following by urology for left ureterolithiasis by urology. He notes,
that he noted a lump to his LLQ at the onset of pain which he was able to reduce with tenderness remaining. On exam, no hernia is appreciated although there is a very small left inguinal hernia noted. He denies nausea or vomiting. He denies bowel or
bladder changes.
Past Medical History
Past Medical History: HTN and Other (gout)
Past Surgical History: Hernia Repair (RAL ventral/epigastric hernia repair 10/19)
Social History
Tobacco: Vaping
Alcohol: Occasional
Family History
Family History: Reviewed & Not Pertinent
Allergies / Home Medications
Allergy/AdvReac Type Severity Reaction Status Date / Time
No Known Allergies Allergy Verified 03/08/25 20:00
�Medication �Instructions �Recorded �Confirmed �Type
albuterol sulfate 90 mcg/actuation 1 inh inhalation ONCE PRN wheeze 09/25/24 03/09/25 History
aerosol inhaler
allopurinol 100 mg tablet 100 mg PO DAILY 09/25/24 03/09/25 History
desvenlafaxine succinate 25 mg 25 mg PO DAILY 09/25/24 03/09/25 History
tablet,extended release 24 hr
(Pristiq)
finasteride 1 mg tablet 1 mg PO DAILY 09/25/24 03/09/25 History
hydrochlorothiazide 25 mg tablet 25 mg PO BID 09/25/24 03/09/25 History
magnesium glycinate 400 mg PO DAILY 09/25/24 03/09/25 History
potassium chloride 20 mEq 20 meq PO BID 09/25/24 03/09/25 History
tablet,extended release(part/cryst)
spironolactone 25 mg tablet 25 mg PO DAILY 09/25/24 03/09/25 History
acetaminophen 325 mg tablet 650 mg (2 x 325 mg) PO Q6HPRN PRN 09/30/24 03/09/25 Rx
mild pain #14 tabs
ibuprofen 600 mg tablet 600 mg PO Q6H PRN pain #14 tabs 09/30/24 03/09/25 Rx
Review of Systems
-
History Source: Patient
All other systems: Negative unless noted
A 10 point review of systems was completed, and was negative except as per HPI.
Physical Exam
Vital Signs
Temp Pulse Resp BP Pulse Ox
98.1 F 65 16 117/74 98
03/09/25 06:55 03/09/25 06:55 03/09/25 06:55 03/09/25 06:55 03/09/25 09:00
03/08/25 03/09/25 03/10/25
06:59 06:59 06:59
Actual Weight 101.695 kg
Body Mass Index (BMI) 29.6
Lab Results
03/09/25 06:35
03/09/25 06:35
WBC 6.5 10^3/uL (4.8-10.8) 03/09/25 06:35
Hgb 14.4 g/dL (13.0-18.0) 03/09/25 06:35
Hct 41.9 % (39.0-52.0) 03/09/25 06:35
Plt Count 200 10^3/uL (130-400) D 03/09/25 06:35
Abs Immat Gran (auto) 0.0 10^3/uL (0-0.05) 03/08/25 20:06
Neutrophils % 66.8 % (42.2-75.2) 03/08/25 20:06
Physical Exam
General: Well Developed and Well Nourished
HEENT: Moist Mucous Membranes
Respiratory: Non Labored Respirations
GI: Soft, Non Distended, Tender (llq) and Other (No Spigelian hernia appreciated on exam)
Genito-urinary: Inguinal Hernia (very small to left groin)
Neuro: Awake, Alert and AO x 3
Psych: Calm
Data Reviewed
-
CT Scan: Image Personally Visualized and interpreted, Report Reviewed by me, Discussed with Physician and Discussed with Patient
Labs: Labs Reviewed by me, Discussed with Physician and Discussed with Patient
Old Records: Reviewed
Assessment / Plan
-
44 yo male presenting with ureteral calculi and reported reducible lump to his left lower quadrant. No spigelian hernia is appreciated on exam or CT imaging. There is a small fat containing left inguinal hernia which is nontender and soft on exam.
AFVSS. No leukocytosis. NPO for OR with urology.
Plan:
No acute/emergent hernia surgery warranted at this time
Will plan outpatient follow up afrer discharge
surgery to follow peripherally, please call with questions/concerns
--- NOTE | 2025-03-09 16:02 | CM ---
Spoke with Ami she said patient is alert oriented at baseline.He is independent in all Adls.Pt for surgery today.
No adaptive devices.
Pharmacy [facility] [place]
PCP Dr Finn
PLAN Home no needs
[2025-03-09] MEDS: SUBLIMAZE 50 MCG IV ×2 (17:22→17:40)
[2025-03-09] MEDS: ZOFRAN 4 MG IV (18:02)
[2025-03-09] MEDS: DILAUDID 0.5 MG IV (18:05)
--- NOTE | 2025-03-11 07:47 | W.DS.TRANS ---
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
-
Discharge Instructions:
Discharge Diagnosis/Procedures Nephrolithiasis
Diet Regular
Activity As tolerated
Driving Restrictions No driving for 24 hours
Bathing Restrictions None
Instructions:
Stand-Alone Forms:
Changes to Home Medications: No
Discharge Medications:
DC Medications w/original date entered in [facility]
albuterol sulfate 90 mcg/actuation aerosol inhaler 1 inh inhalation ONCE PRN wheeze 09/25/24
allopurinol 100 mg tablet 100 mg PO DAILY 09/25/24
desvenlafaxine succinate 25 mg tablet,extended release 24 hr (Pristiq) 25 mg PO DAILY 09/25/24
finasteride 1 mg tablet 1 mg PO DAILY 09/25/24
hydrochlorothiazide 25 mg tablet 25 mg PO BID 09/25/24
magnesium glycinate 400 mg PO DAILY 09/25/24
potassium chloride 20 mEq tablet,extended release(part/cryst) 20 meq PO BID 09/25/24
spironolactone 25 mg tablet 25 mg PO DAILY 09/25/24
acetaminophen 325 mg tablet 650 mg (2 x 325 mg) PO Q6HPRN PRN mild pain #14 tabs 09/30/24
ibuprofen 600 mg tablet 600 mg PO Q6H PRN pain #14 tabs 09/30/24
Home Medication Changes
Pending Results: No
== END 2025-03-09 21:28 | disposition home or self-care (01) | DRG 661 ==
LOC: 2 SOUTH 00:30
PROVIDERS: ADMITTING PHYSICIAN Internal Medicine; ATTENDING PHYSICIAN Hospitalist; CONSULT PHYSICIAN Specialist; CONSULT PHYSICIAN Surgery; EMERGENCY PHYSICIAN Emergency Medicine
PROC: 0T778DZ Dilation of Left Ureter with Intraluminal Device, Via Natural or Artificial Opening Endoscopic (ICD-10-PCS; 2025-03-09)
PROC: 0TF78ZZ Fragmentation in Left Ureter, Via Natural or Artificial Opening Endoscopic (ICD-10-PCS; 2025-03-09)
DX: N13.2 Hydronephrosis with renal and ureteral calculous obstruction (principal); K40.90 Unilateral inguinal hernia, without obstruction or gangrene, not specified as recurrent; F17.290 Nicotine dependence, other tobacco product, uncomplicated; I10 Essential (primary) hypertension; Z79.899 Other long term (current) drug therapy; Z87.442 Personal history of urinary calculi
CPT/HCPCS: 74018; 74177; 76000; 80048; 80053; 81003; 83735; 85025; 85027; 99285; C1894; C2617; Q9967

== ENCOUNTER 2025-03-24 06:18 | Day surgery (SDC) | payer BC, SELFPAY ==
[2025-03-24] VITALS (7 sets, daily range): BP systolic 110–128; BP diastolic 73–85
[2025-03-24] MEDS: NORMOSOL-R/PLASMALYTE-A 1000 IV (10:22)
[2025-03-24 10:50] LABS: Urine Character Clear (Clear)
[2025-03-24 11:18] LABS: Urine White Cell 16-20 /HPF (0-5)
== END 2025-03-24 13:35 | disposition home or self-care (01) ==
LOC: SDS 06:18
PROVIDERS: ATTENDING PHYSICIAN Specialist
DX: Z46.6 Encounter for fitting and adjustment of urinary device (principal); Z87.442 Personal history of urinary calculi
CPT/HCPCS: 52310; 81003; 81015; 87086